=== PATIENT | male | born 1970 | race Two or more races ===

== ENCOUNTER → 2017-03-03 | Outpatient (CLI) | payer BC ==
--- NOTE | 2017-03-03 09:35 | CARD ---
APPROVED REPORT EXAM: Two-dimensional and M-mode echocardiogram with Doppler and color Doppler. Other Information Quality : GoodHR: 45bpm Rhythm : Bradycardia INDICATION Hypertension/HCVD RISK FACTORS Hypertension 2D DIMENSIONS RVDd2.5 (2.9-3.5cm)Left Atrium(2D)2.8 (1.6-4.0cm) IVSd1.3 (0.7-1.1cm)Aortic Root(2D)3.6 (2.0-3.7cm) LVDd4.5 (3.9-5.9cm)LVOT Diameter2.4 (1.8-2.4cm) PWd1.3 (0.7-1.1cm)LVDs2.8 (2.5-4.0cm) FS (%) 37.8 %SV62.2 ml LVEF(%)68.1 (>50%) Aortic Valve AoV Peak Lux.106.0cm/sAoV VTI25.0cm AO Peak GR.4.5mmHgLVOT Peak Lux.103.5cm/s LVOT VTI 22.57cmAO Mean GR.2mmHg RAFIQ (VMAX)4.51oq9FNO (VTI)4.04cm2 Mitral Valve MV E Qxseilqj18.9cm/sMV E Peak Gr.2mmHg MV DECEL [id number] A Lwdtsvmg39.0cm/s MV E Mean Gr.1mmHgE/A Ratio2.8 MV A [id number] Pulmonary Valve PV Peak Barqcxwt26.5cm/sPV Peak Grad.2mmHg Tricuspid Valve TR P. Kfgengqn641yh/sTR Peak Gr.15mmHg Pulmonary Vein S1 Pynvvprn46.2cm/sD2 Nmflmaww25.6cm/s LEFT VENTRICLE The left ventricle is normal size. There is mild concentric left ventricular hypertrophy. The left ve ntricular systolic function is normal and the ejection fraction is within normal range. The Ejection Fraction is 60-65%. There is normal LV segmental wall motion. The left ventricular diastolic function and filling is normal for age. RIGHT VENTRICLE The right ventricle is normal size. There is normal right ventricular wall thickness. The right ventr icular systolic function is normal. ATRIA The left atrium size is normal. The right atrium size is normal. The interatrial septum is intact wit h no evidence for an atrial septal defect or patent foramen ovale as noted on 2-D or Doppler imaging. AORTIC VALVE The aortic valve is mildly thickened. The aortic valve is trileaflet. Doppler and Color Flow revealed no significant aortic regurgitation. There is no significant aortic valvular stenosis. MITRAL VALVE The mitral valve leaflets are mildly thickened. There is no evidence of mitral valve prolapse. There is no mitral valve stenosis. Doppler and Color Flow revealed trace mitral regurgitation. TRICUSPID VALVE Doppler and Color Flow revealed trace tricuspid regurgitation.The pulmonary artery systolic pressure is estimated at 18 mmHg. There is no pulmonary hypertension. PULMONIC VALVE Doppler and Color Flow revealed trace pulmonic valvular regurgitation. There is no pulmonic valvular stenosis. GREAT VESSELS The aortic root is normal in size. The ascending aorta is normal in size. The IVC is normal in size a nd collapses >50% with inspiration. PERICARDIAL EFFUSION There is no evidence of significant pericardial effusion. Critical Notification Critical Value: No <Conclusion> The left ventricular systolic function is normal and the ejection fraction is within normal range. Th e Ejection Fraction is 60-65%. There is normal LV segmental wall motion. Doppler and Color Flow revealed trace tricuspid regurgitation.The pulmonary artery systolic pressure is estimated at 18 mmHg. There is no pulmonary hypertension.
--- NOTE | 2017-03-03 13:06 | RAD ---
APPROVED REPORT Test Type: Exercise Stress Nurse/Tech: Lily Mejia Test Indications: Precordial pain 6 months ago Cardiac History: No known cardiac Resting Heart Rate: 44 bpm Resting Blood Pressure: 118/78mmHg Pretest Chest Pain: No chest pain Stress Symptoms No CP, NO Dyspnea POST EXERCISE Reason for Termination: Reached target heart rate Target HR: Yes Max HR: 179 bpm 122% of Maximum Predicted HR: 146 bpm Exercise duration: 10:46 min:sec, 4 Stage Exercise capacity: 13.4 (142%)METs Max Blood Pressure: 167/85mmHg Blood Pressure response to exercise: Normal blood pressure response during stress. Heart Rate response to exercise: Normal Chest Pain: No. Arrhythmia: No. ST Change: No. INTERPRETATION Stress EKG Conclusion: No evidence of exercise stress induced EKG changes. Rare PVC's at peak stress. Imaging Protocol IMAGE PROTOCOL: Rest Tc-99m/stress Tc-99m 1 day Rest: Stress: Viability: Radiopharm.Tc99m NvozefqliNj03d Sestamibi Pxfs70sXb 32mCi Duration 20min. 15min. Img Date 03/03/2017 03/03/2017 Inj-Img [id number]. 45min. Rest Admin Site:IV - Right AntecubitalAdministrator: RT Matt (R)(N) Stress Admin Site: IV - Right AntecubitalAdministrator: RT Matt (R)(N) STRESS DATA End Diast. Vol.114.0mlAv. Heart Rate74.0bpm LVEDV index BSA2.0mlCardiac Output0.1L/min End Syst. Vol.33.0mlCO Index BSA6.0L/min LVESV index BSA1.0mlMyocardial Gedy407.0g Eject. Bopugnzn73.0% Stress Rates Pk. Fill Rate3.12EDV/secLVtime Pk. Fill 181.38msec Pk. Empty Rate3.32ESV/secLVtime Pk. Vlivh431.93msec 09/23 Pk. Fill1.66EDV/sec Stress Scores Regional WT1.00Summed WT2.00 Regional WM0.00Summed WM3.00 The rest and stress images show normal perfusion, normal contraction and thickening. LV Perf. Quant 17 Seg. SSS6.00 17 Seg. SRS7.00 17 Seg. SDS0.00 Stress Defect Extent (% LAD)0.00Rest Defect Extent (% LAD)4.40Rev. Defect Extent (% LAD)0.00 Stress Defect Extent (% LCX) 38.80Rest Defect Extent (% LCX)46.30Rev. Defect Extent (% LCX)12.50 Stress Defect Extent (% RCA)7.80Rest Defect Extent (% RCA)8.90Rev. Defect Extent (% RCA)0.00 Stress Defect Extent (% LUCI)10.90Rest Defect Extent (% LUCI)15.40Rev. Defect Extent (% LUCI)2.60 Other Information Quality:Good Risk Assessment: Low Risk Conclusion 1. No evidence of stress induced EKG changes. 2. Fixed basal to mid inferior/inferolateral defect likely due to anatomical variant and no evidence of ischemia. 3. Normal EF and wall motion. EF > 70% 4. Low risk study
== END | disposition home or self-care (01) ==
LOC: NM 07:55
PROVIDERS: ATTEND Nurse Practitioner
DX: I11.9 Hypertensive heart disease without heart failure (principal); I08.3 Combined rheumatic disorders of mitral, aortic and tricuspid valves
CPT/HCPCS: 78452; 93017; 93306; 96374; 96376; A9500